=== PATIENT | female | born 1990 | race Hispanic/Latino ===

== ENCOUNTER 2023-09-09 19:56 | Emergency (ER) | payer BC, OTHER ==
--- OUTSIDE RECORDS SUMMARY | 2023-09-09 19:59 | XMS REPORT | Continuity of Care Document ---
Author Name Unknown Address [address] [facility] [address] [place] [address] [facility] thconnect Address [address] [facility] [address] [place] [address] Care Team Providers Care Cellar Packer Name Role Phone José Luis Meza PA-C Primary Care Physician [phone] Priyanka Crowe Attending Clinician Unavail able Kirsty Katz PA-C Attending Clinician [phone] José Luis Meza PA-C Attending Clinician KIRSTY KATZ Attending Clinician Unavailable Physician, No Primary or Family Admitting Clinic renetta Unavailable Priyanka Crowe Admitting Clinician Unavail able Payers Payer Name Policy Type Policy Number Effective Date Expirati on Date Source Problems Condition Name Condition Details Condition Category Status Onset Date Resolution Date Last Treatment Date Treating Clinician Comments Source No known active problems No known active problems Disease [facility] Allergies, Adverse Reactions, Alerts Allergy Name Allergy Type Status Severity Reaction(s) Onset Date Inactive Date Treating Clinician Comments Source Amoxicil sander Propensi ty to adverse reaction s Active Hives 2020-05 00:00: 00 [facility] Penicill in Propensi ty to adverse reaction s Active Hives 2020-05 00:00: 00 [facility] AMOXICIL SANDER DRUG INGREDI Active Hives 2020-05 00:00: 00 [facility] PENICILL IN DRUG INGREDI [facility] Penicill ins DA Active U 2020-05 00:00: 00 [facility] Penicill ins DA Active U HIVES 2020-05 00:00: 00 [facility] NO KNOWN ALLERGIE S Drug Class Active [facility] Social History Social Habit Start Date Stop Date Quantity Comments Source Exposure to SARS-CoV-2 (event) Yes [facility] Tobacco use and exposure 2021-05-16 00:00:00 2021-05-16 00:00:00 Never used [facility] Sex Assigned At 1990 00:00:00 1990 00:00:00 [facility] Smoking Status Start Date Stop Date Source Never smoker [facility] Medications Ordered Medication Name Filled Medication Name Start Date Stop Date Current Medication? Ordering Clinician Indication Dosage Frequency Signature (SIG) Comments Components Source famotidine 20 mg tablet 2020-05 00:00: 00 Yes [id number] 20mg Take 1 tablet by mouth 2 (two) times daily. [facility] hydrocortis one 1 % cream 2020-05 00:00: 00 Yes [id number] Apply to area(s) daily. [facility] methylPREDN ISolone 4 mg tablets 2020-05 00:00: 00 Yes [id number] Take by mouth SEE-INSTRU CTIONS. follow package directions [facility] Vital Signs Vital Name Observation Time Observation Value Comments S peter Systolic blood pressure 2021-05-16 15:56:00 113 mm[Hg] [facility] Diastolic blood pressure 2021-05-16 15:56:00 75 mm[Hg] [facility] Heart rate 2021-05-16 15:56:00 103 /min [facility] Body temperature 2021-05-16 15:56:00 37.28 Jailene [facility] Respiratory rate 2021-05-16 15:56:00 22 /min [facility] Body height 2021-05-16 15:56:00 160 cm [facility] Body weight 2021-05-16 15:56:00 76.839 kg [facility] BMI 2021-05-16 15:56:00 30.01 kg/m2 [facility] Oxygen saturation in Arterial blood by Pulse oximetry 2021-05-16 15:56:00 99 /min [place] [facility] Procedures Procedure Date / Time Performed Performing Clinicia n Source [id number] 2021-03-23 00:00:00 CHAKR.07 [facility] Encounters Start Date/Time End Date/Time Encounter Type Admission Type Attending Clinicians Care Facility Care Department Encounter ID Source 2022-06-23 15:40:00 2022-06-23 15:40:00 Outpatient Priyanka Delgado [facility] [id number] 00 [facility] 2021-06-06 00:00:00 2021-06-06 00:00:00 Refill Kirsty Katz [facility] [id number] [facility] 2021-05-16 09:40:00 2021-05-16 10:26:31 Urgent Care [facility]irsty Katz [facility] [id number] [facility] 2021-05-16 09:40:00 2021-05-16 10:26:31 Outpatient KIRSTY LITTLEJOHN [facility] [id number] [facility] 2021-05-16 09:40:00 2021-05-16 09:40:00 Outpatient Sherrie [facility] [id number] [facility] 2021-03-23 04:59:00 2021-03-25 15:27:00 Inpatient Priyanka Delgado [facility] [id number] [facility] Results Test Description Test Time Test Comments Results Resul t Comments Source - US PELVIS COMPLETE 2022-06-23 [facility]:00[facility] [facility] 1990 Sex: F * Patient Name: PER KNAPP Unit No: [id number] EXAMS: CPT CODE: [id number] US PELVIS COMPLETE 88265 PROCEDURE INFORMATION: Exam: US Pelvis Complete (Transabdominal), Pelvis (Transvaginal), and US Duplex Artery or Vein (Ovaries) Limited Exam date and time: 06/23/2022 4:15 PM Age: 32 years old Clinical indication: Abdominal or pelvic symptoms: Menorrhagia; Menstruation abnormalities; Excessive menstruation TECHNIQUE: Imaging protocol: Real-time transabdominal and transvaginal pelvic ultrasound (complete) with image documentation. Transvaginal imaging was used for better evaluation of the endometrium, adnexa, and/or cervix. Real-time duplex ultrasound scan of the arterial or venous flow of the ovaries with B-mode, color Doppler flow and spectral waveform analysis. Complete Pelvis, Limited Duplex. Duplex exam was performed to evaluate for torsion and other vascular conditions. COMPARISON: No relevant prior studies available. FINDINGS: The anteverted uterus measures 6.5 x 3.5 x 4.7 cm in size. There is mild indistinctness of the junctional zone with uterine heterogeneity. Correlate clinically for adenomyosis. The endometrial stripe measures 4 mm in thickness. Right ovary measures 2.6 x 1.1 x 1.8 cm. Left ovary measures 2.8 x 1.3 x 1.6 cm. There is normal bilateral ovarian blood flow on doppler evaluation. Probable right corpus luteum measuring 1.3 x 1.6 x 1.0 cm. Bilateral ovarian follicles are identified. There is no free fluid in the cul-de-sac. If there is further concern, followup pelvic sonography or MRI of the pelvis may be performed. IMPRESSION: 1. Mild uterine heterogeneity with mild junctional zone irregularity. This is nonspecific however correlate clinically for adenomyosis. 2. Probable right corpus luteum. Close follow-up pelvic ultrasound is recommended in 6 weeks. Consider pelvic MRI follow-up. [facility] NAME: DAVID KNAPPTTE [facility] Radiology Department PHYS: Priyanka Ferraro [address] : 1990 AGE: 32 SEX: F [place] [address] LOC: F.RAD PHONE #: [phone] EXAM DATE: 06/23/2022 STATUS: REG CLI FAX #: [phone] RAD NO: Page 1 Signed Report (CONTINUED) Patient Name: PER KNAPP Unit No: [id number] EXAMS: CPT CODE: [id number] US PELVIS COMPLETE 96503 (Continued) at 2033 Reported and signed by: Evan Guzman MD CC: Priyanka Crowe MD Technologist: Tessa Felipe RDMS Probe: Trnscrbd D/ (2033) GCD.CPS Orig Print D/T: S: 06/23/2022 (2033) [facility] NAME: DAVID KNAPPTTE BRIGHT Radiology Department PHYS: Priyanka Ferraro [address] : 1990 AGE: 32 SEX: F [place] [address] LOC: Paula.RAD PHONE #: [phone] EXAM DATE: 06/23/2022 STATUS: REG CLI FAX #: [phone] RAD NO: Page 2 Signed Report Patient Name: PER KNAPP Unit No: [id number] EXAMS: CPT CODE: [id number] US PELVIS COMPLETE 25272 (Continued) [facility] NAME: PER KNAPP Radiology Department PHYS: Priyanka Ferraro [address] : 1990 AGE: 32 SEX: F [place], [place] [address] LOC: F.RAD PHONE #: [phone] EXAM DATE: 06/23/2022 STATUS: REG CLI FAX #: [phone] RAD NO: Page 3 Signed Report - US TRANSVAGINAL W/PELVIS 2022-06-23 00:00:00 [facility] 1990 Sex: F * Patient Name: PER KNAPP Unit No: [id number] EXAMS: CPT CODE: [id number] US TRANSVAGINAL W/PELVIS 83319 PROCEDURE INFORMATION: Exam: US Pelvis Complete (Transabdominal), Pelvis (Transvaginal), and US Duplex Artery or Vein (Ovaries) Limited Exam date and time: 06/23/2022 4:15 PM Age: 32 years old Clinical indication: Abdominal or pelvic symptoms: Menorrhagia; Menstruation abnormalities; Excessive menstruation TECHNIQUE: Imaging protocol: Real-time transabdominal and transvaginal pelvic ultrasound (complete) with image documentation. Transvaginal imaging was used for better evaluation of the endometrium, adnexa, and/or cervix. Real-time duplex ultrasound scan of the arterial or venous flow of the ovaries with B-mode, color Doppler flow and spectral waveform analysis. Complete Pelvis, Limited Duplex. Duplex exam was performed to evaluate for torsion and other vascular conditions. COMPARISON: No relevant prior studies available. FINDINGS: The anteverted uterus measures 6.5 x 3.5 x 4.7 cm in size. There is mild indistinctness of the junctional zone with uterine heterogeneity. Correlate clinically for adenomyosis. The endometrial stripe measures 4 mm in thickness. Right ovary measures 2.6 x 1.1 x 1.8 cm. Left ovary measures 2.8 x 1.3 x 1.6 cm. There is normal bilateral ovarian blood flow on doppler evaluation. Probable right corpus luteum measuring 1.3 x 1.6 x 1.0 cm. Bilateral ovarian follicles are identified. There is no free fluid in the cul-de-sac. If there is further concern, followup pelvic sonography or MRI of the pelvis may be performed. IMPRESSION: 1. Mild uterine heterogeneity with mild junctional zone irregularity. This is nonspecific however correlate clinically for adenomyosis. 2. Probable right corpus luteum. Close follow-up pelvic ultrasound is recommended in 6 weeks. Consider pelvic MRI follow-up. [facility] NAME: PER KNAPP Radiology Department PHYS: [place] - Priyanka Crowe [address] : 1990 AGE: 32 SEX: F [place], [place] [address] LOC: Paula.RAD PHONE #: [phone] EXAM DATE: 06/23/2022 STATUS: REG CLI FAX #: [phone] RAD NO: Page 1 Signed Report (CONTINUED) Patient Name: PER KNAPP Unit No: [id number] EXAMS: CPT CODE: [id number] US TRANSVAGINAL W/PELVIS 55950 (Continued) at 2033 Reported and signed by: Evan Guzman MD CC: Priyanka Crowe MD Technologist: Tessa Felipe RDMS Probe: [id number] Trnscrbd D/ (2033) GCD.CPS Orig Print D/T: S: 06/23/2022 (2033) [facility] NAME: PER KNAPP Radiology Department PHYS: Priyanka Ferraro [address] : 1990 AGE: 32 SEX: F [place], [place] [address] LOC: F.RAD PHONE #: [phone] EXAM DATE: 06/23/2022 STATUS: REG CLI FAX #: [phone] RAD NO: Page 2 Signed Report Patient Name: PER KNAPP Unit No: [id number] EXAMS: CPT CODE: [id number] US TRANSVAGINAL W/PELVIS 16448 (Continued) [facility] NAME: PER KNAPP Radiology Department PHYS: Priyanka Ferraro [address] : 1990 AGE: 32 SEX: F [place] [address] LOC: F.RAD PHONE #: [phone] EXAM DATE: 06/23/2022 STATUS: REG CLI FAX #: [phone] RAD NO: Page 3 Signed Report - DUP AB/PEL/SC/LTD 2022-06-23 00:00:[address] [facility] 1990 Sex: F * Patient Name: PER KNAPP Unit No: [id number] EXAMS: CPT CODE: [id number] DUP AB/PEL/SC/LTD 33204 PROCEDURE INFORMATION: Exam: US Pelvis Complete (Transabdominal), Pelvis (Transvaginal), and US Duplex Artery or Vein (Ovaries) Limited Exam date and time: 06/23/2022 4:15 PM Age: 32 years old Clinical indication: Abdominal or pelvic symptoms: Menorrhagia; Menstruation abnormalities; Excessive menstruation TECHNIQUE: Imaging protocol: Real-time transabdominal and transvaginal pelvic ultrasound (complete) with image documentation. Transvaginal imaging was used for better evaluation of the endometrium, adnexa, and/or cervix. Real-time duplex ultrasound scan of the arterial or venous flow of the ovaries with B-mode, color Doppler flow and spectral waveform analysis. Complete Pelvis, Limited Duplex. Duplex exam was performed to evaluate for torsion and other vascular conditions. COMPARISON: No relevant prior studies available. FINDINGS: The anteverted uterus measures 6.5 x 3.5 x 4.7 cm in size. There is mild indistinctness of the junctional zone with uterine heterogeneity. Correlate clinically for adenomyosis. The endometrial stripe measures 4 mm in thickness. Right ovary measures 2.6 x 1.1 x 1.8 cm. Left ovary measures 2.8 x 1.3 x 1.6 cm. There is normal bilateral ovarian blood flow on doppler evaluation. Probable right corpus luteum measuring 1.3 x 1.6 x 1.0 cm. Bilateral ovarian follicles are identified. There is no free fluid in the cul-de-sac. If there is further concern, followup pelvic sonography or MRI of the pelvis may be performed. IMPRESSION: 1. Mild uterine heterogeneity with mild junctional zone irregularity. This is nonspecific however correlate clinically for adenomyosis. 2. Probable right corpus luteum. Close follow-up pelvic ultrasound is recommended in 6 weeks. Consider pelvic MRI follow-up. [facility] NAME: PER KNAPP Radiology Department PHYS: Priyanka Ferraro [address] : 1990 AGE: 32 SEX: F [place], [place] [address] LOC: F.RAD PHONE #: [phone] EXAM DATE: 06/23/2022 STATUS: REG CLI FAX #: [phone] RAD NO: Page 1 Signed Report (CONTINUED) Patient Name: PER KNAPP Unit No: [id number] EXAMS: CPT CODE: [id number] DUP AB/PEL/SC/LTD 61400 (Continued) at 2033 Reported and signed by: Evan Guzman MD CC: Priyanka Crowe MD Technologist: Tessa Felipe RDMS Probe: Trnscrbd D/ (2033) GCD.CPS Orig Print D/T: S: 06/23/2022 (2033) [facility] NAME: PER KNAPP Radiology Department PHYS: Priyanka Ferraro [address] : 1990 AGE: 32 SEX: F [place] [address] LOC: Paula.RAD PHONE #: [phone] EXAM DATE: 06/23/2022 STATUS: REG CLI FAX #: [phone] RAD NO: Page 2 Signed Report Patient Name: PER KNAPP Unit No: [id number] EXAMS: CPT CODE: [id number] DUP AB/PEL/SC/LTD 60924 (Continued) [facility] NAME: PER KNAPP Radiology Department PHYS: Priyanka Ferraro [address] : 1990 AGE: 32 SEX: F [place] [address] LOC: F.RAD PHONE #: [phone] EXAM DATE: 06/23/2022 STATUS: REG CLI FAX #: [phone] RAD NO: Page 3 Signed Report AB HIV 1 13:28:00* Test Item Value Reference Range Interpretation Comme nts AB HIV 1 2 (test code = MHA11FN) NONREACTIVE NONREACTIVE Done by [employer] HIV Ag/Ab Combo Screen AG HEPATITIS B [id number] 13:28:00* Test Item Value Reference Range Interpretation Comme nts AG HEPATITIS B SURFACE (test code = HBSAG) NONREACTIVE NONREACTIVE AB HEPATITIS C [id number] 13:28:00* Test Item Value Reference Range Interpretation Comme nts AB HEPATITIS C (test code = HCVAB) NONREACTIVE NONREACTIVE SIGNAL TO CUTOFF (test code = CUTOFF) <0.02 <0.80 N AB [id number] 13:28:00* Test Item Value Reference Range Interpretation Comme nts AB TREPONEMA (test code = TREPAB) NONREACTIVE NONREACTIVE COVID 19 Asymptomatic IH [id number] 12:52:00* Test Item Value Reference Range Interpretation Comme nts COVID 19 Asymptomatic IH AG (test code = COVNONPUIAG) NEGATIVE NEGATIVE This test has be en authorized only for the detection ofproteins from SARS-CoV-2, not for any other viruses orpathogens. Negative results should be treated as presumptive andconfirmed with a molecular assay, if necessary for patientmanagement. Negative results do not rule out COVID-19 andshould not be used as the sole basis for treatment orpatient management decisions, including infection controldecisions. Negative results should be considered in thecontext of a patient's recent exposures, history and thepresence of clinical signs and symptoms consistent withCOVID-19. This test has not been FDA cleared or approved; the test hasbeen authorized by FDA under an Emergency Use Authorization(EUA) for use by laboratories certified under the CLIA thatmeet the requirements to perform moderate, high or waivedcomplexity tests. This test is authorized for use at thePoint of Care (POC), i.e., in patient care settingsoperating under a CLIA Certificate of Waiver, Certificate ofCompliance, or Certificate of Accreditation. This test is only authorized for the duration of thedeclaration that circumstances exist justifying theauthorization of emergency use of in vitro diagnostic testsfor detection and/or diagnosis of COVID-19 under Fsfhtgj398(b)(1) of the Act, 21 U.S.C. 360bbb-3(b)(1), unless theauthorization is terminated or revoked sooner. CBC W/AUTO [id number] 12:09:00* Test Item Value Reference Range Interpretation Comme nts WHITE BLOOD CELL (test code = WBC) 10.2 K/mm3 6.5-12.3 N RED BLOOD CELL (test code = RBC) 4.13 M/mm3 3.51-4.69 N HEMOGLOBIN (test code = HGB) 11.1 g/dL 10.1-13.8 N HEMATOCRIT (test code = HCT) 34.5 % 32.5-41.8 N MEAN CELL VOLUME (test code = MCV) 83.5 fL 84.6-96.6 L MEAN CELL HGB (test code = MCH) 26.9 pg 27.3-33.9 L MEAN CELL HGB CONCETRATION ( test code = MCHC) 32.2 gm/dL 32.0-34.2 N RED CELL DISTRIBUTION WIDTH (test code = RDW) 13.6 % 12.2-16.3 N PLATELET COUNT (test code = PLT) 385 K/mm3 134-363 H MEAN PLATELET VOLUME (test c ode = MPV) 10.0 fL 9.2-12.7 N NEUTROPHIL % (test code = NT%) 69.3 % 57.9-77.3 N LYMPHOCYTE % (test code = LY%) 22.1 % 14.5-29.7 N MONOCYTE % (test code = MO%) 6.7 % 3.6-10.2 N EOSINOPHIL % (test code = EO%) 0.8 % 0.0-3.0 N BASOPHIL % (test code = BA%) 0.4 % 0.1-0.9 N NEUTROPHIL # (test code = NT#) 7.1 K/mm3 LYMPHOCYTE # (test code = LY#) 2.3 K/mm3 MONOCYTE # (test code = MO#) 0.7 K/mm3 EOSINOPHIL # (test code = EO#) 0.08 K/mm3 BASOPHIL # (test code = BA#) 0.0 K/mm3 RBC MORPHOLOGY REQUIRED (melanie t code = RBCM) NORMAL NORMAL PLATELET MORPHOLOGY REQUIRED (test code = PLTMR) NORMAL NORMAL URINALYSIS W/O [id number] 11:37:00* Test Item Value Reference Range Interpretation Comme nts UA GLUCOSE DIPSTICK (test co de = DGLUU) NEGATIVE NEGATIVE UA KETONE DIPSTICK (test cod e = KETU) NEGATIVE NEGATIVE UA PROTEIN DIPSTICK (test co de = PROU) NEGATIVE NEGATIVE IS NURSE PERFORMING TEST? N Notes Date/Time Note Provider Source 2021-03-25 09:07:00 [id number]/ekNNulOIwPWgkZm6zW/OdxkH QP1b9jyb+bAclAh7CQmnFIQTy566577-78-07R47:07:00 [facility]OB Disch PostpartumREPORT#:[id number] REPORT STATUS: SignedDATE:03/25/21 TIME: 906 PATIENT: PER KNAPP UNIT #: [id number]#: [id number] [address] [birth year] AGE: 30 SEX: F ATTEND: Priyanka Crowe [facility] AUTHOR: Priyanka Crowe MD * ALL edits or amendments must be made on the electronic/computer document * Subjective SubjectiveAdmission EGA: Weeks: 39 Days: 2Status/day: post operative (day 2)Patient reports: Patient reports: Yes: normal lochia, tolerating po well, voiding well, voiding without pain, tolerating ambulation, flatus, bowel movement. No: complaints, nausea, vomiting, abdominal pain. Objective GeneralVS:Vital Signs Date Temp Pulse Resp B/P B/P Mean Pulse Ox FiO2 03/24 98.2-98.3 91-92 18 118-122/73 88.0 Last Documented: Result Date Time B/P Mean 88.0 03/24 2338 B/P 118/73 03/24 2338 Temp 98.3 03/24 233 Pulse 92 03/24 233 Resp 18 03/24 2338 Pulse Ox 97 03/23 1140 PATIENT WEIGHT: Weight (lb): 194Weight (oz): Weight (kg): 87.997 Physical ExamLungs: unlabored breathingNeuro: Exam: alert, normal speechIncision site: clean / dry / intact with dermabondUterus: involution appropriate, non-tenderFundus: below the umbilicus ResultsFindings/Data:Laboratory Tests: 03/24 0720 Hematology Hgb (10.1 - 13.8 g/dL) 8.9 L Hct (32.5 - 41.8 %) 27.8 L Discharge Summary GeneralProblem List/A P: 1. delivery delivered 2. Acute blood loss anemia Assessment: nml progressDate of admission:Date of admission: 03/23/21 Admission diagnosis: breech presentationHospital course: primary admit, epidural anesthesia, spinal anesthesia,nml postop/postpart careProcedures: primary CS deliveryDischarge to: Home/Self CareDischarge diagnosis: full-term uncomp deliveryNursing data:The data set between the solid lines has been imported from nursing documentation. Any exceptions have been noted below under Provider comments. Delivery date infant A: 03/23/21 Delivery time infant A: 0712Birthweight (gm) infant A: 3170Feeding preference: Gender A: MaleApgar 1 minute infant A: 8Apgar 5 minutes A: 9Apgar 10 minutes infant A: Provider comments on imported nursing data: [] Plan: routine care, circumcision tomorrow, discharge tomorrow, discussed asx anemia, for iron supplement on DC Discharge InstructionsInstructions: routine instr sheet given, instr and warnings rev'd, specific instr as notedDiet: RegularAdditional discharge routines: PCP Follow-UpDischarge meds:Stop taking the following medications:ASPIRIN (ASPIRIN) 81 MG TAB.CHEW 81 MILLIGRAM ORAL DAILY. Continue taking these medications:PNV WITH FE FUMARATE/FA () 1 EACH TAB 1 TABLET ORAL DAILY. Start taking the following new medications:IBUPROFEN (MOTRIN) 800 MG TAB 800 MILLIGRAM ORAL THREE TIMES DAILY NEEDED. as needed for PAIN Qty = 30 No Refills oxyCODONE HCL/ACETAMINOPHEN (PERCOCET 5/325 MG) 5 MG-325 MG TAB 1 TABLET ORAL EVERY 4 HOURS NEEDED. as needed for breakthrough pain Qty = 15 No Refills Prescriptions: e-prescribe Add'l Follow-up AppointmentsPCP follow-up: PCP: Priyanka Crowe MD PCP follow up timeframe: In 5-6 weeks at 0909 RPT #:[id number] OF REPORT OBObstetric [id number]:07:00F.[id number] able for patient vuqlEXWDEECPNEYJHI0816-96-90G55:09:59 [facility] 2021-03-24 09:50:00 [id number] ELH4L6e/tGNojGHU+vjgv+ekmCgFh uZ9M6Hx+vDhwle5C0sIiXBs1maN1534-42-57V85:50:00 [facility]OB Postpart Progr NoteREPORT#:[id number] REPORT STATUS: SignedDATE:03/24/21 TIME: 0950 PATIENT: PER KNAPP UNIT #: [id number]#: [id number] ROOM[facility]BED[facility]ADOB: [birth year] AGE: 30 SEX: F ATTEND: Priyanka Crowe [facility] AUTHOR: Priyanka Crowe MD * ALL edits or amendments must be made on the electronic/computer document * Subjective SubjectiveAdmission EGA: Weeks: 39 Days: 2Status/day: post operative (day 1)Comments:Doing well this AM. Tolerating PO without nausea, (+) voiding since goodwin out and (+) flatus. Asx of anemia Objective Nursing Documentation ReviewNursing data:The data set between the solid lines has been imported from nursing documentation. Any exceptions have been noted below under Provider comments. Feeding preference: Post hemorrhage risk score: Low Risk for Hemorrhage. Provider comments on imported nursing data: [] GeneralVS:Vital Signs Date Temp Pulse Resp B/P B/P Mean Pulse Ox FiO2 03/23 98.1-98.7 66-79 18 103-112/57-70 78.0-84.0 97-99 Last Documented: Result Date Time B/P 103/63 03/23 2356 Temp 98.6 03/23 2356 Pulse 67 03/23 2356 Resp 18 03/23 2356 B/P Mean 84.0 03/23 1140 Pulse Ox 97 03/23 1140 PATIENT WEIGHT: Weight (lb): 194Weight (oz): Weight (kg): 87.997 Physical ExamLungs: unlabored breathingNeuro: Exam: alert, normal speechAbdomen: soft, no abnormal tendernessIncision site: clean / dry / intact with dermabondUterus: involution appropriateFundus: firm, below the umbilicus ResultFindings/data:Laboratory Tests: 03/24 0720 Hematology Hgb (10.1 - 13.8 g/dL) 8.9 L Hct (32.5 - 41.8 %) 27.8 L Diagnosis, Assessment Plan Diagnosis, Assessment PlanProblem List/A P: 1. delivery delivered 2. Acute blood loss anemia Assessment: nml progressPlan: routine care, circumcision tomorrow, discharge tomorrow, discussed asx anemia, for iron supplement on DC at 0952 [facility] #:[id number] OF REPORT PRProgress Ujqq3621-98-20E21:50:00F.[id number] able for patient zlivLVOLMARVUACUOQ5943-54-24V00:53:10 [facility] 2021-03-24 07:54:00 [id number] 4Ju/BECtCp7k34JXGbjX9n3WWy/m5 hGieSUiSKPW3Bg1yHcZBrqXEgQR6916-16-08P73:54:20672 [address] [id number] PATIENT NAME: PER KNAPP ADMIT DATE: 03/23/21ACCOUNT NO: [id number] ROOM NO: [facility] AGE: 30 SEX: F ADMITTING PHYSICIAN: Priyanka Crowe MD ATTENDING PHYSICIAN: Priyanka Crowe MD OPERATION DATE: 03/23/2021 PREOPERATIVE DIAGNOSES:1. Single intrauterine at 39 weeks'.2. Breech presentation. POSTOPERATIVE DIAGNOSES:1. Single intrauterine at 39 weeks'.2. Breech presentation. PROCEDURE PERFORMED: Primary low transverse delivery. PRIMARY SURGEON: Priyanka Crowe M.D. FORM RAISER: RODO Lundy. ANESTHETIC: Combined spinal epidural. ESTIMATED BLOOD LOSS: 700 mL. SPECIMENS REMOVED: Placenta, donated to MD Salas. ANTIBIOTICS: Clindamycin (PENICILLIN ALLERGY). COMPLICATIONS: None. DRAINS: None. TUBES: None. IMPLANTS: None. FLUIDS: See anesthesia record. URINE OUTPUT: See anesthesia record. FINDINGS: Viable male infant in breech presentation, Apgars of 8 at 1 minuteand 9 at 5 minutes, weight of 3170 g. Meconium-stained fluid. Normal placentawith a 3-vessel cord. Normal uterus, fallopian tubes, ovaries. PROCEDURE IN DETAIL: After informed consent was obtained and risks, benefits,and alternatives were explained to the patient, the patient was taken to theoperating room where she was prepped and draped in the normal sterile fashion in PATIENT NAME: PER KNAPP supine position with left lateral tilt. After combined spinal epiduralanesthesia had been obtained and confirmed to be adequate, a Pfannenstiel skinincision was made with a scalpel and carried down to the underlying layer of thefascia with a combination of blunt and sharp dissection. The fascia was nickedin the midline. This incision was extended laterally using Benson scissors. Thesuperior border of the fascia was grasped with Adan clamps, elevated anddissected off the underlying rectus muscles with a combination of blunt andsharp dissection. The inferior fascial edge was similarly dissected andseparated. The midline was identified and entered bluntly. This incision wasextended superiorly and inferiorly with good visualization of the bladder. Abladder blade was inserted. The uterine lie was palpated with the surgeon'wilman. A transverse incision was made over the lower uterine segment using the scalpeland extended using the Rodriguez maneuver. Amniotomy performed, meconium-stainedfluid. The breech was grasped and brought to the level of hysterotomy, wherethe baby delivered using standard breech maneuvers atraumatically. Initiallystunned noted and thus immediate cord clamping was obtained and baby washanded off to awaiting NRP trained personnel, quickly began crying and perked upupon transfer and resuscitation. Cord blood collection [facility] [place] in the standard fashion. The placenta delivered spontaneouslyexpressed intact and was donated to MD Salas. The uterus was exteriorizedand cleared of all clots and debris. The hysterotomy was reapproximated in 2layers, the first with a running locked suture of 0 Monocryl, the second with animbricating suture of 0 Monocryl. The posterior cul-de-sac was cleaned of allclots and debris and the uterus was returned to the abdomen. Bilateralpericolic gutters were cleaned of all clots and debris. The hysterotomy wasreexamined and found to be hemostatic. The peritoneum and rectus muscles wereclosed in a running suture of 2-0 chromic. The rectus muscles were examined andfound to be hemostatic. The fascia was closed with a running suture of #1Vicryl. The subcutaneous adipose tissue was copiously irrigated using warmsaline and hemostasis assured with electrocautery. The skin was closed with 4-0Monocryl and Dermabond. The patient did tolerate the procedure well. Sponge, lap, and needle countswere correct x2. The patient was taken to the recovery room in stablecondition. Greyson Epps, served as assistant portfolio manager for the duration of the case. Heprovided essential protraction, retraction, and aided in delivery of the baby,thus his presence as dictated above was medically necessary. Dictated By: Priyanka Crowe MD WT: OP:F.JANEEN/GARFIELD/NTSDD: 03/24/2021 07:54:04DT: 03/24/2021 10:13:49Conf#: [id number]/DID#: [id number] Authenticated by Priyanka Crowe MD On 03/25/2021 09:42:15 AM PATIENT NAME: DREW KNAPPE BRIGHT at 0942 PATIENT NAME: PER KNAPP vxtkhz6346-86-91F50:13:00F.[id number] lable for patient woxjWXHERDKSIAZPJH4725-38-11L61:42:53 [facility] 2021-03-23 08:28:00 [id number] oTpFZzCbIm6n0cg57Oe8GTKwOrLcJ LBVuGLVLU8ehaiWLEb/e1F+rPiH9088-47-36H29:28:00 [facility]Op/Inv Procedure Note - BriefREPORT#:[id number] REPORT STATUS: SignedDATE:03/23/21 TIME: 08 PATIENT: PER KNAPP UNIT #: [id number]#: [id number] [address] [birth year] AGE: 30 SEX: F ATTEND: Priyanka Crowe MDADM AUTHOR: Priyanka Crowe MD * ALL edits or amendments must be made on the electronic/computer document * Op/Inv Proc Note - Brief TEXT Brief Op/Inv Procedure NoteNote details:*PRE-PROCEDURE DIAGNOSIS:Single intrauterine @ 39 weeksBreech presentation *POST-PROCEDURE DIAGNOSIS:Single intrauterine @ 39 weeksBreech presentation *PROCEDURE(S) PERFORMED:Primary low transverse delivery *PRIMARY SURGEON:Priyanka Crowe MD *FORM RAISER(S):RODO Joe ANESTHETIC:combined spinal epidural *ESTIMATED BLOOD LOSS in ml's:700mL *SPECIMEN(S) REMOVED:placenta to MD Salas *COMPLICATIONS:None DRAIN(S):None TUBE(S):None IMPLANT(S):None FLUIDS:see anesthesia record URINE OUTPUT:see anesthesia record *FINDINGS:viable male in breech presentation, apgars of 8 at 1 minute and 9 at 5 minutes, weight of 3170g. Meconium - stained fluid. Normal placenta with a 3 vessel cord. Normal uterus, fallopian tubes, ovaries DISPOSITION:To PACU at 0906 RPT #:[id number] OF REPORT PNProcedure dcix0262-01-35L33:28:00F.[id number] able for patient zbdqSROSRMBCWQFNCV4469-95-08X32:06:21 [facility] 2021-03-22 15:58:00 [id number] IGCkLC6FchnLnvvN9kg6CsLQDo1pp oOoJzL4MvUzNv/BE6a26JWR17Pq5728-62-28R27:58:00 [facility] History PhysicalREPORT#:[id number] REPORT STATUS: SignedDATE:03/22/21 TIME: 1558 PATIENT: PER KNAPP UNIT #: [id number]#: [id number] ROOM/BED:: 89 AGE: 30 SEX: F ATTEND: Priyanka Crowe MDADM AUTHOR: Priyanka Crowe MD * ALL edits or amendments must be made on the electronic/computer document * History PhysicalHistory PhysicalCC: scheduled primary C/S HPI: 30 year old @ 39 weeks here for scheduled due to breech presentation. complicated by maternal COVID-19, taking ASA PERSONAL INFO:its a boy! "Melecio" LABS: Hgb/Hct: 14.1/ 42.4Platelets: 403Type/rH: O POSITIVEIDC: NEGATIVERubella: 0.96, Non-ImmuneHIV: NRHepBsAg: NEGRPR: NRHep C: NEGTSH: 1.320Urine culture: NEGATIVEPap: 08/11/2020 NEGATIVEGC/CT/Trich: NEGATIVE MSaFP: NEGATIVEGenetic testing: NEGTIVECarrier screening: DECLINED Anatomy US (11/10): normal anatomy EFW 73%ile, placenta anterior 2nd trimester bloodwork:CBC 11.7/ 34.31hr GTT: 1393 hr GTT: 87/ 117 / 101/ 93 3rd trimester CBC: 11.6/35.6, 4333rd trimester RPR: neg3rd trimester HIV: negGBS: negative OB CHECKLIST:ZIKA Counseling: discussed Hospital Attendant: [facility] feeding: breast feeeding, discussed breast pumpPN Class: discussedPP Contraception: discussed POPs versus IUDFlu vaccine: recommendedCOVID-19 vaccine: recommended, paperwork providedTdap vaccine: completed Pre-Cecil: discussedBlood products:accepts Circumcision: desires Cord Blood: discussed FMLA Form: discussed 10/09 Pelvis Clinically Adequate: yesEFW under 5000 gm: yes OB history: C9C5Nlri medical history: COVID-19Past surgical history: deniesAllergies: PCN (rash / hives)Meds PNV ASA Objective (from office visit 03/17/21)Gen NADAbdomen soft gravid NTSVE closed /thick / high FHTs 145Breech again confirmed on US Assessment: primary LTCS for malpresentationPlan: r/b/a explained to patient who expressed understanding. RH positive Rubella NON-immune, will offer MMR vaccine pp, its a boy! "Melecio" - desires circumcision at 1607 RPT #:[id number] OF REPORT HPHistory and physical mibilbthnew3591-54-70K72:58:00F.[id number] AVAvailable for patient xhykMYDLBBQICWYTDF5194-05-14S84:08:37 HCAWH
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
[2023-09-09 22:11] VITALS: BP 107/62; TEMP 98.3; O2SAT 100
== END 2023-09-09 21:52 | disposition home or self-care (01) ==
LOC: ER 19:56
DX: O26.892 Other specified pregnancy related conditions, second trimester (principal); V49.40XA Driver injured in collision with unspecified motor vehicles in traffic accident, initial encounter; Z3A.25 25 weeks gestation of pregnancy; Z88.0 Allergy status to penicillin
CPT/HCPCS: 76815; 99283